=== PATIENT | female | born 1995 | race Caucasian/White ===

== ENCOUNTER → 2021-12-11 13:49 | Outpatient (BNVA) | payer BC, SELFPAY | PROVIDERS: Visit Provider Nurse Practitioner Women's Health | DX: N92.6 Irregular menstruation, unspecified (principal) | CPT/HCPCS: 81025 ==

== ENCOUNTER → 2022-01-07 09:13 | Outpatient (BNVA) | payer OTHER, BC, SELFPAY | PROVIDERS: Visit Provider Obstetrics & Gynecology | DX: Z34.90 Encounter for supervision of normal pregnancy, unspecified, unspecified trimester (principal) | CPT/HCPCS: 80307; 84315; 84443; 85025; 86592; 86762; 86803; 86850; 86900; 87086; 87340 ==

== ENCOUNTER → 2022-01-21 09:17 | Outpatient (BNVA) | payer OTHER, BC, SELFPAY | PROVIDERS: Visit Provider Obstetrics & Gynecology | DX: Z34.00 Encounter for supervision of normal first pregnancy, unspecified trimester (principal) | CPT/HCPCS: 81000 ==

== ENCOUNTER → 2022-05-13 08:12 | Outpatient (BNVA) | payer OTHER, BC, SELFPAY | PROVIDERS: Visit Provider Obstetrics & Gynecology | DX: Z34.00 Encounter for supervision of normal first pregnancy, unspecified trimester (principal) | CPT/HCPCS: 82950; 84315; 85025 ==

== ENCOUNTER 2022-05-26 14:12 | Outpatient (CLI) | payer OTHER, BC, SELFPAY ==
--- NOTE | 2022-05-26 14:15 | US_ITS ---
WS: [id number] ULTRASOUND OB FOCUSED HISTORY: Follow-up profile. COMPARISON: 03/17/2022. Single intrauterine gestation in cephalic position. Cervix is closed at approximately 4 cm. heart rate at 138 BPM. Placenta is anterior with no previa or abruption. Grade: 1. Reevaluation of the profile and lips is normal. No abnormality is identified. US/US OB >= 14 weeks fetus [id number] IMPRESSION: Follow-up imaging of the profile, nose and lips is negative. No abnormali ty identified.
== END 2022-05-26 14:13 | disposition home or self-care (01) ==
LOC: RAD 14:12
PROVIDERS: Visit Provider Obstetrics & Gynecology
DX: Z34.00 Encounter for supervision of normal first pregnancy, unspecified trimester (principal)
CPT/HCPCS: 76805

== ENCOUNTER 2022-06-10 14:00 | Outpatient (CLI) | payer OTHER, BC, SELFPAY ==
[2022-06-10] VITALS (7 sets, daily range): BP systolic 133–155; BP diastolic 74–82; PULSE 91–107; BMI 36.3
[2022-06-10 14:46] LABS: Add Urine Microscopic? NO; Charge for UA Resulting for Rev
[2022-06-10 14:48] LABS: Basophils % 0.3 %; Eosinophils # 0.2 10^3/uL (0.0-0.8); Eosinophils % 1.8 %; Hematocrit 35.7 % (37.0-47.0); Lymphocytes # 2.2 10^3/uL (0.8-4.8); Lymphocytes % 18.3 %; Mean Corpuscular HGB Conc 33.6 g/dL (30.0-36.0); Mean Corpuscular Hemoglobin 30.3 pg (28.0-34.0); Mean Corpuscular Volume 90.2 fl (81-99); Mean Platelet Volume 9.7 fL (7.4-10.4); Monocytes # 0.8 10^3/uL (0.2-0.9); Monocytes % 6.9 %; Neutrophils # 8.55 10^3/uL (1.8-7.7); Neutrophils % 71.7 %; Nucleated Red Blood Cells % 0 %; Platelet Count 219 10^3/cmm (130-400); Red Blood Count 3.96 10^6/uL (4.1-5.3); Red Cell Distribution Width 13.1 % (12.1-15.1)
[2022-06-10 14:50] LABS: Bilirubin Urine Neg (Negative); Blood Urine Neg (Negative); Glucose Urine UA Norm (Normal); Ketones Urine Negative (Negative); Leukocyte Esterase Urine Negative (Negative); Nitrate Urine Negative (Negative); Protein Urine Neg (Negative); Urine Appearance Clear (CLEAR); Urine Color Yellow (Yellow); Urobilinogen Urine Norm (Negative); pH Urine 7 (5-7)
[2022-06-10 15:13] LABS: Urine Creatinine 18 mg/dL (28-217); Urine Protein Random 4 mg/dL
[2022-06-10 15:14] LABS: UPRO/UCREAT Ratio 0.22 mg/mg CR
[2022-06-10 15:15] LABS: Alanine Aminotransferase 9 U/L (0-33); Albumin Level 3.3 g/dL (3.5-5.2); Alkaline Phosphatase 162 IU/L (35-105); Anion Gap 13.8 (5-19); Aspartate Amino Transferase 16 U/L (0-32); Blood Urea Nitrogen 7 mg/dL (6-20); Calcium 8.7 mg/dL (8.5-10.5); Carbon Dioxide 21 mmol/L (22-29); Chloride 103 mmol/L (98-107); Globulin 3.1 g/dL (1.3-4.6); Glomerular Filtration Rate 146.9 mL/min (90-130); Glucose 126 mg/dL (65-115); Osmolality Calculated 278 mOsm/kg (285-295); Potassium 3.8 mmol/L (3.5-5.1); Sodium 134 mmol/L (136-145); Total Bilirubin 0.2 mg/dL (0.15-1.2); Total Protein 6.4 g/dL (6.6-8.7); Uric Acid 3.8 mg/dL (2.4-5.7)
== END 2022-06-10 15:35 | disposition home or self-care (01) ==
LOC: OPOB 14:11 → OBGYN 14:12
PROVIDERS: Obstetrics & Gynecology; Visit Provider Obstetrics & Gynecology
DX: O26.899 Other specified pregnancy related conditions, unspecified trimester (principal); Z3A.00 Weeks of gestation of pregnancy not specified; I10 Essential (primary) hypertension
CPT/HCPCS: 36415; 59025; 80053; 81003; 82570; 84156; 84315; 84443; 84550; 85025; 99211

== ENCOUNTER 2022-06-24 13:46 | Outpatient (CLI) | payer OTHER, BC, SELFPAY ==
[2022-06-24] VITALS (10 sets, daily range): BP systolic 113–133; BP diastolic 68–77; PULSE 15–114; BMI 89.8
--- NOTE | 2022-06-24 13:58 | US_ITS ---
WS: [id number] BIOPHYSICAL PROFILE AMNIOTIC FLUID HISTORY: HYPERTENSION COMPARISON: 05/26/2022 Cardiac activity: 164 bpm. Cervix: Poorly visualized due to head. Placenta: Anterior, no previa or abruption. Placenta grade: 2 position: Vertex. Parameters are as follows: Breathin Movement: 2 Tone: 2 Fluid volume: 2 Amniotic fluid index: 9.5 cm. Largest vertical pocket of amniotic fluid 4.1 cm. US/US OB BPP wo NST [id number] IMPRESSION: 1. Biophysical profile score: 8/8. 2. Normal amniotic fluid index.
[2022-06-24 15:11] LABS: UPRO/UCREAT Ratio 0.14 mg/mg CR; Urine Creatinine 37 mg/dL (28-217); Urine Protein Random 5 mg/dL
[2022-06-24 15:13] LABS: Add Urine Microscopic? YES; Bilirubin Urine Neg (Negative); Blood Urine Neg (Negative); Glucose Urine UA Norm (Normal); Ketones Urine Negative (Negative); Leukocyte Esterase Urine Trace (Negative); Nitrate Urine Negative (Negative); Protein Urine Neg (Negative); RBC Urine 0-4 /hpf (0-2); Specific Gravity, Urine 1.005 (1.005-1.030); Squamous Epithelial Cell Urine 0-4 /hpf (0-5); Urine Appearance Clear (CLEAR); Urine Color Straw (Yellow); Urobilinogen Urine Norm (Negative); pH Urine 7 (5-7)
[2022-06-24 15:14] LABS: Add Urine Culture? Yes; Bacteria Urine 3+ /hpf
[2022-06-24 15:16] LABS: Basophils % 0.3 %; Eosinophils # 0.1 10^3/uL (0.0-0.8); Eosinophils % 1.3 %; Hematocrit 33.2 % (37.0-47.0); Mean Corpuscular HGB Conc 33.1 g/dL (30.0-36.0); Mean Corpuscular Volume 90.5 fl (81-99); Mean Platelet Volume 10.1 fL (7.4-10.4); Monocytes # 0.9 10^3/uL (0.2-0.9); Neutrophils # 7.64 10^3/uL (1.8-7.7); Neutrophils % 70.9 %; Nucleated Red Blood Cells % 0 %; Platelet Count 213 10^3/cmm (130-400); Red Blood Count 3.67 10^6/uL (4.1-5.3); Red Cell Distribution Width 13.2 % (12.1-15.1); White Blood Count 10.8 10^3/uL (4.0-10.0)
[2022-06-24 16:12] LABS: Alanine Aminotransferase 10 U/L (0-33); Albumin Level 3.1 g/dL (3.5-5.2); Alkaline Phosphatase 157 U/L (35-105); Anion Gap 14.8 (5-19); Aspartate Amino Transferase 16 U/L (0-32); Blood Urea Nitrogen 7 mg/dL (6-20); Calcium 8.6 mg/dL (8.5-10.5); Carbon Dioxide 21 mmol/L (22-29); Chloride 103 mmol/L (98-107); Globulin 2.8 g/dL (1.3-4.6); Glucose 94 mg/dL (65-115); Osmolality Calculated 278 mOsm/kg (285-295); Potassium 3.8 mmol/L (3.5-5.1); Sodium 135 mmol/L (136-145); Total Bilirubin 0.2 mg/dL (0.15-1.2); Total Protein 5.9 g/dL (6.6-8.7); Uric Acid 4.7 mg/dL (2.4-5.7)
== END 2022-06-24 16:01 | disposition home or self-care (01) ==
LOC: OPOB 13:49 → OBGYN 15:57
PROVIDERS: Visit Provider Obstetrics & Gynecology
DX: O26.899 Other specified pregnancy related conditions, unspecified trimester (principal); Z3A.00 Weeks of gestation of pregnancy not specified
CPT/HCPCS: 76819; 80053; 81001; 82570; 84156; 84550; 85025; 87086

== ENCOUNTER → 2022-06-28 14:31 | Outpatient (BNVA) | payer OTHER, BC, SELFPAY | PROVIDERS: Visit Provider Obstetrics & Gynecology | DX: Z34.00 Encounter for supervision of normal first pregnancy, unspecified trimester (principal); I10 Essential (primary) hypertension | CPT/HCPCS: 84315; 85025; 87491; 87591; 87661 ==

== ENCOUNTER → 2022-07-09 08:35 | Outpatient (BNVA) | payer OTHER, BC, SELFPAY | PROVIDERS: Visit Provider Obstetrics & Gynecology | DX: O13.9 Gestational [pregnancy-induced] hypertension without significant proteinuria, unspecified trimester (principal); Z3A.00 Weeks of gestation of pregnancy not specified | CPT/HCPCS: 84315; 87081 ==

== ENCOUNTER 2022-07-16 09:10 | Outpatient (CLI) | payer OTHER, BC, SELFPAY ==
[2022-07-16 09:37] VITALS: BMI 37.9
[2022-07-16 09:46] LABS: Actim Prom Negative
== END 2022-07-16 09:56 | disposition home or self-care (01) ==
LOC: OPOB 09:11 → OBGYN 09:12
PROVIDERS: Visit Provider Obstetrics & Gynecology
DX: O26.899 Other specified pregnancy related conditions, unspecified trimester (principal); Z3A.00 Weeks of gestation of pregnancy not specified; N89.8 Other specified noninflammatory disorders of vagina
CPT/HCPCS: 84112

== ENCOUNTER 2022-07-23 02:50 | Inpatient (IN) | payer OTHER, BC, SELFPAY ==
[2022-07-22 13:45] VITALS: BMI 38.9
[2022-07-22 14:20] VITALS: BP 145/77; PULSE 89
[2022-07-22 14:35] VITALS: BP 132/84; PULSE 86
[2022-07-22 14:50] VITALS: BP 132/80; PULSE 91
[2022-07-22 15:06] VITALS: BP 134/78; PULSE 80
[2022-07-23] VITALS (40 sets, daily range): BP systolic 65–155; BP diastolic 36–96; PULSE 64–112; RESP 17; TEMP 36.1–36.2
[2022-07-23 03:19] LABS: Basophils # 0.1 10^3/uL (0.0-0.1); Basophils % 0.5 %; Eosinophils # 0.2 10^3/uL (0.0-0.8); Eosinophils % 1.7 %; Hematocrit 34.9 % (37.0-47.0); Hemoglobin 11.5 g/dL (11.5-15.3); Lymphocytes # 2.9 10^3/uL (0.8-4.8); Lymphocytes % 26.8 %; Mean Corpuscular Hemoglobin 30.1 pg (28.0-34.0); Mean Corpuscular Volume 91.4 fl (81-99); Mean Platelet Volume 10.6 fL (7.4-10.4); Monocytes # 1.1 10^3/uL (0.2-0.9); Monocytes % 9.9 %; Neutrophils # 6.51 10^3/uL (1.8-7.7); Neutrophils % 60.7 %; Nucleated Red Blood Cells % 0 %; Platelet Count 173 10^3/cmm (130-400); Red Blood Count 3.82 10^6/uL (4.1-5.3); Red Cell Distribution Width 14.2 % (12.1-15.1); White Blood Count 10.7 10^3/uL (4.0-10.0)
[2022-07-23] MEDS: miSOPROStol 100 mcg tablet 25 MCG VAGINAL ×4 (03:19→16:25)
--- NOTE | 2022-07-23 11:50 | P.HP_ITS ---
Providers/Chief Complaint Admitting Physician: Luisa Arriaza Primary GANG PLANK WORKMAN: Abdulaziz Chief Complaint: IOL, oligo HPI GANG PLANK WORKMAN History of Present Illness Freida Rodrigez is a 27 year old female G1 at 38w3d with GHTN not on medication who presented for IOL d/t ROHAN of 4 cm. Present Details : 1 Para: 0 Abnormal OB US findings: ROHAN 4 cm Obstetrical complications: gestational hypertension Labs Rubella: Immune RPR: Negative GBS: Negative L&D/Induction Specific History Indication for induction OB: other (oligohydramnios and chtn) Review of Systems General: Reports: 10 or more systems reviewed and unremarkable except in HPI and below Narrative: mildly elevated bps, low amniotic fluid Medications/Allergies Home Medications Medication Instructions Recorded Confirmed Last Taken Type prenat.vits,christopher,cuj-qnvg-blweu 1 tab PO DAILY 12/11/21 07/22/22 07/16/22 History cetirizine 10 mg disintegrating 10 mg PO DAILY 01/07/22 07/22/22 1 Week Ago History tablet (Zyrtec) ~06/17/22 aspirin 81 mg chewable tablet 81 mg PO DAILY 05/13/22 07/22/22 07/16/22 History ferrous sulfate 325 mg (65 mg 325 mg PO DAILY 05/27/22 07/22/22 07/16/22 History iron) tablet Allergies Allergy/AdvReac Type Severity Reaction Status Date / Time Penicillins Allergy Unknown Verified 07/22/22 11:05 PFSH GANG PLANK WORKMAN PFSH: Medical History No pertinent past medical history neghx: htn,dm,thyroid,dvt/pe PCP: None Surgical History H/O shoulder surgery 2010-- right labrum tear Family History Mother Hypercholesteremia Hypertension Father Hypertension Grandfather Stroke Paternal- at age 80 Denies family history of Colon cancer Ovarian cancer Diabetes Heart disease Breast cancer Uterine cancer Thyroid disease Social History Smoking and tobacco status: never smoked Dietary Habits: Current diet type/program: regular Safety: Seatbelt use: always Personal Safety: Do you feel safe at home: Yes History History History 1 Term Miscarriages/Ectopic Living Children Care TADEO Calculator Estimated Delivery Date Method Current WG Current Estimate 08/03/22 LMP (Certain) 38w 3d Other Estimates 08/06/22 Ultrasound #1 38w 0d Expected Delivery Route/Plan vaginal Specific Issues/Plans moniter bps closely Vitals/I&O/Wt Last Vital Signs Pulse 112 H 07/23/22 11:35 Resp 17 07/23/22 02:38 BP 140/95 07/23/22 11:35 O2 Del Method 07/22/22 13:45 Weight last 48 hrs Weight 241 lb Physical Exam Narrative: denies pain, vaginal bleeding, lof. reports good movement. Const: COMMON NORMALS: no acute distress, average body habitus, patient oriented x3, healthy appearing and alert HENMT: COMMON NORMALS: normocephalic, atraumatic, hearing grossly normal bilaterally and moist oral mucous membranes Eye: COMMON NORMALS: EOMs intact bilaterally, conjunctivae normal and no scleral icterus Neck/C-Spine: COMMON NORMALS: full ROM, supple, no JVD and Thyroid normal Resp: COMMON NORMALS: normal respiratory effort, No retractions and No use of accessory muscles Cardio: COMMON NORMALS: no JVD and regular rate GI: INSPECTION: Yes normal to inspection and Yes gravid abdomen : OTHER: SVE 1cm/thick/-2 vtx per nursing Extremity: COMMON NORMALS: normal to inspection, full ROM, capillary refill normal and no clubbing, cyanosis or edema Neuro: COMMON NORMALS: patient oriented x3, moves all extremities, no focal motor deficits, no sensory deficits noted and gait normal Psych: COMMON NORMALS: mental status grossly normal, Normal thought process present, cooperative, normal affect and speech normal Skin: COMMON NORMALS: no rashes or lesions noted and turgor normal Data : 07/23/22 03:11 A&P Assessment and plan (1) Supervision of normal first : Status: Acute (2) Gestational hypertension affecting first : Status: Acute (3) Oligohydramnios in third trimester: Status: Acute Plan admit for cytotec for cervical ripening followed by pitocin induction anticipate cmp this am to check liver enzymes d/t elevated bps Attestations Medical Necessity Statement*: 38 weeks gestation admitted for MIL d/t oligohydramnios and ghtn Coding Level of Care Code Acute Orthotics Assistant for Chg Fwd Diagnoses Supervision of normal first Z34.00 Gestational hypertension affecting first O13.9 Oligohydramnios in third trimester O41.03X0
[2022-07-23 13:03] LABS: Alanine Aminotransferase 10 U/L (0-33); Albumin Level 3.1 g/dL (3.5-5.2); Alkaline Phosphatase 199 U/L (35-105); Aspartate Amino Transferase 17 U/L (0-32); Blood Urea Nitrogen 10 mg/dL (6-20); Calcium 8.6 mg/dL (8.5-10.5); Carbon Dioxide 19 mmol/L (22-29); Chloride 104 mmol/L (98-107); Globulin 3.1 g/dL (1.3-4.6); Glucose 92 mg/dL (65-115); Osmolality Calculated 279 mOsm/kg (285-295); Sodium 135 mmol/L (136-145); Total Bilirubin 0.2 mg/dL (0.15-1.2); Total Protein 6.2 g/dL (6.6-8.7)
[2022-07-23] MEDS: oxytocin 30 UNIT/500 ML BAG IV (20:56)
[2022-07-23] MEDS: dextrose 5%-lactated ringers 1,000 ML 125 ML IV (20:57)
[2022-07-24] VITALS (96 sets, daily range): BP systolic 115–162; BP diastolic 59–96; PULSE 65–107; RESP 16–18; TEMP 36.9–37.2; O2SAT 91–100
[2022-07-24] MEDS: lactated ringers 1,000 ML 999 ML IV ×2 (02:10→03:40)
--- NOTE | 2022-07-24 02:47 | P.ANESUD_ITS ---
Pre-Anesthetic Update Pre-Anesthetic Assessment: Date of Surgery/Procedure: 07/24/22 Preop Marta gnosis: Planning of labor analgesia Proposed Procedure: Labor Epidural Any changes to Pre-Anesthetic Assessment?: No Last Intake: 19:00 Labs Last 48hrs: Short CBC 07/23/22 Range/Units 03:11 WBC 10.7 H (4.0-10.0) 10^3/ uL Hgb 11.5 (11.5-15.3) g/dL Hct 34.9 L (37.0-47.0) % MCV 91.4 (81-99) fl Plt Count 173 (130-400) 10^3/c mm Neut % (Auto) 60.7 % Neut # (Auto) 6.51 (1.8-7.7) 10^3/u L BMP 07/23/22 12:00 Sodium 135 L Potassium 4.0 Chloride 104 Carbon Dioxide 19 L BUN 10 Creatinine 0.6 Glucose 92 Calcium 8.6 Liver Function 07/23/22 Range/Units 12:00 Total Bilirubin 0.2 (0.15-1.2) mg/dL AST 17 (0-32) U/L ALT 10 (0-33) U/L Alkaline Phosphata se 199 H (35-105) U/L Albumin 3.1 L (3.5-5.2) g/dL Vitals: Temperature 97.0 F L 07/23/22 12:00 Temperature Source Tympanic 07/23/22 12:00 Pulse Rate 86 07/24/22 02:40 Respiratory Rate 17 07/23/22 02:38 Respiratory Effort Non-Labored 07/22/22 13:45 Respiratory Depth Normal 07/22/22 13:45 Respiratory Patter n 07/22/22 13:45 Blood Pressure 131/78 07/24/22 02:40 Pulse Oximetry 100 07/24/22 02:38 Oxygen Delivery Me thod 07/22/22 13:45 Exam: Pre-Anes Outpt Exam: alert, oriented x 3, clear to auscultation bilaterally and regular rate & rhythm Cardiac Studies: No Data to Display Anesthesia Procedures Epidural: Time Out Performed: Yes Consents Signed: Procedure Consent Consent: from patient Lumbar Level: L4-L5 Epidural position: sitting Epidural procedure: sterile prep of area, 1% lidocaine to numb the area, 18 g needle, negative for paresthesia passed, neg for paresthesia, test dose given (2% Xylocaine 1:200k Epi), placed PCEA, no systemic response, sterile dressing applied, L.U.D. no apparent complications and 0.2% Ropiavacaine @ mls/hr (13)
[2022-07-24] MEDS: dextrose 5%-lactated ringers 1,000 ML 125 ML IV ×2 (05:01→09:30)
--- NOTE | 2022-07-24 06:26 | PC.NURSE ---
Pt was found to be ruptured during cervical exam on 07/24/2022 by [email or web address] at 0612, small amount of fluid and it was clear.
[2022-07-24] MEDS: ondansetron 2 mg/ML SDV 2 mL 4 MG IVP (07:48)
[2022-07-24] MEDS: acetaminophen 325 mg Tablet 650 MG PO ×2 (09:29→15:58)
--- NOTE | 2022-07-24 11:12 | P.PCNOB_ITS ---
Delivery Note: Date of delivery: July 24, 2022 Pre-delivery diagnoses: 38 w iup gestational htn Post-delivery diagnoses: same meconium stained amniotic fluid Procedure: Uncomplicated Delivering Physician: Arsalan Estimated blood loss (mL): 300 Findings: viable female with apgars of 4,6 and 9, Weight 3360 gms Pre-Delivery Course: admitted for MIL with cytotec and pitocin with SROM between 0500 and 0615 initially reported to be clear. Epidural anesthesia in place and working well. Delivery: from OA position without complication. Upon easy rotation and delivery of the anterior shoulder, a pop was felt. No dystocia was present. Thin meconium noted in the fluid that followed delivery of the . Baby p laced on the maternal abdomen after bulb suctioning the nares and oropharynx. Cord clamped and cut and baby noted to not be vigerous, so was taken to the warmer for further evaluation. Placenta delivered spontaneously intact with 3 vc noted. EBL 300ml. Superficial abrasion noted to right periurethral and left introitus not bleeding and not repaired. Post-Delivery Status: Mom and baby stable, baby taken to the nursery for further evaluation due to the presence of meconium and increased work of breathing. Peds called. Baby girl subsequently transferred to [facility] in [place]. History History History 1 Term Miscarriages/Ectopic Living Children Past Pregnancies Del. Date GA/Weeks Outcome Route Wt Inf Gender Labor Lgth Comp. Anesth esia Location Unknown 38 live - full term Vaginal 7 lb 6.521 oz Female A&P Assessment and plan (1) Supervision of normal first : (2) Oligohydramnios in third trimester: (3) Gestational hypertension affecting first : Plan routine care moniter bps Coding Level of Care Code Established Pt Acute Switchbox Assembler for Chg Fwd Patient Type Established History Problem Focused Exam Problem Focused Medical Decision Making Straight Forward Diagnoses Supervision of normal first Z34.00 Oligohydramnios in third trimester O41.03X0 Gestational hypertension affecting first O13.9 Time Spent (min) 45
--- NOTE | 2022-07-24 17:29 | PM.OBGYDC ---
Discharge Providers HIGHWAY TRAFFIC CONTROL TECHNICIAN Date of Admission: 07/23/22 02:50 Date of Discharge: 07/24/22 Attending Provider at Admission: Luisa Arriaza Attending Provider at Discharge: Luisa Arriaza Diagnoses at Discharge Discharge Diagnosis (1) Supervision of normal first : Details from hospital stay: admitted at 38 weeks for MIL for GHTN and Oligohydramnios. Status: Acute (2) Oligohydramnios in third trimester: Status: Acute (3) Gestational hypertension affecting first : Status: Acute Reason for Visit Reason for Visit: IOL, oligo Brief History: sent for induction for GHTN and oligohydramnios Hospital Course Hospital Course admitted and started induction with cytotec and pitocin. Progressed to complete and delivered a viable female over a superficial abrasion with epidural anesthesia with thin non particulate meconium staining of the amniotic fluid noted in the aftercoming fluid. Baby needed additional oxygen and care in the nursery for increased work of breathing and was subsequently transferred to [facility]. Mom was stable pp and was discharged to go with baby. Information Peripartum Data: Delivery Method: Vaginal Laceration description: Superficial (right periurethral and left introitus, not bleeding) complications: none Physical Exam Const: COMMON NORMALS: no acute distress, patient oriented x3 and alert HENMT: COMMON NORMALS: normocephalic and moist oral mucous membranes HEAD & SCALP: normocephalic Eye: COMMON NORMALS: conjunctivae normal and no scleral icterus CONJUNCTIVA: Yes conjunctivae normal Neck/C-Spine: COMMON NORMALS: no JVD Resp: COMMON NORMALS: normal respiratory effort, No retractions and No use of accessory muscles Cardio: COMMON NORMALS: no JVD, regular rate and Peripheral pulses 2+ throughout RATE: regular rate PERIPHERAL PULSES: Peripheral pulses 2+ throughout GI: INSPECTION: Yes normal to inspection and Yes gravid abdomen : OTHER: normal pp lochia Extremity: COMMON NORMALS: normal to inspection, full ROM and no clubbing, cyanosis or edema Neuro: COMMON NORMALS: patient oriented x3, moves all extremities and gait normal SENSORIUM/ORIENTATION: Yes alert Psych: COMMON NORMALS: mental status grossly normal, Normal thought process present, cooperative and normal affect THOUGHT PROCESS: Normal thought process present Skin: NARRATIVE SKIN EXAM: warm, dry and intact Urinary Catheter Management: Piper: Cath Placed During This Visit: yes, but has since been removed by the nurse Reason for Continuing Indwelling Catheter: Decision to DC Catheter Urinary Catheter Date of Insertion: 07/24/22 Urinary Catheter Time of Insertion: 03:21 Date Urinary Catheter Removed: 07/24/22 Time Urinary Catheter Discontinued: 12:00 History History History 1 Term Miscarriages/Ectopic Living Children Past Pregnancies Del. Date GA/Weeks Outcome Route Wt Inf Gender Labor Lgth Comp. Anesthesia Location Unknown 38 live - full term Vaginal 7 lb 6.521 oz Female Discharge Data Studies Completed and Pending Laboratory Results WBC 10.7 10^3/uL (4.0-10.0) H 07/23/22 03:11 RBC 3.82 10^6/uL (4.1-5.3) L 07/23/22 03:11 Hgb 11.5 g/dL (11.5-15.3) 07/23/22 03:11 Hct 34.9 % (37.0-47.0) L 07/23/22 03:11 MCV 91.4 fl (81-99) 07/23/22 03:11 MCH 30.1 pg (28.0-34.0) 07/23/22 03:11 MCHC 33.0 g/dL (30.0-36.0) 07/23/22 03:11 RDW 14.2 % (12.1-15.1) 07/23/22 03:11 Plt Count 173 10^3/cmm (130-400) 07/23/22 03:11 MPV 10.6 fL (7.4-10.4) H 07/23/22 03:11 Neut % (Auto) 60.7 % 07/23/22 03:11 Lymph % (Auto) 26.8 % 07/23/22 03:11 [place] % (Auto) 9.9 % 07/23/22 03:11 Eos % (Auto) 1.7 % 07/23/22 03:11 Baso % (Auto) 0.5 % 07/23/22 03:11 Neut # (Auto) 6.51 10^3/uL (1.8-7.7) 07/23/22 03:11 Lymph # (Auto) 2.9 10^3/uL (0.8-4.8) 07/23/22 03:11 [place] # (Auto) 1.1 10^3/uL (0.2-0.9) H 07/23/22 03:11 Eos # (Auto) 0.2 10^3/uL (0.0-0.8) 07/23/22 03:11 Baso # (Auto) 0.1 10^3/uL (0.0-0.1) 07/23/22 03:11 Nucleated RBC % (auto) 0 % 07/23/22 03:11 Nucleated RBCs # 0.0 /100WBC 07/23/22 03:11 Sodium 135 mmol/L (136-145) L 07/23/22 12:00 Potassium 4.0 mmol/L (3.5-5.1) 07/23/22 12:00 Chloride 104 mmol/L (98-107) 07/23/22 12:00 Carbon Dioxide 19 mmol/L (22-29) L 07/23/22 12:00 Anion Gap 16.0 (5-19) 07/23/22 12:00 BUN 10 mg/dL (6-20) 07/23/22 12:00 Creatinine 0.6 mg/dL (0.5-0.9) 07/23/22 12:00 GFR Calculation 119.0 mL/min (90-130) 07/23/22 12:00 Glucose 92 mg/dL (65-115) 07/23/22 12:00 Calculated Osmolality 279 mOsm/kg (285-295) L 07/23/22 12:00 Calcium 8.6 mg/dL (8.5-10.5) 07/23/22 12:00 Total Bilirubin 0.2 mg/dL (0.15-1.2) 07/23/22 12:00 AST 17 U/L (0-32) 07/23/22 12:00 ALT 10 U/L (0-33) 07/23/22 12:00 Alkaline Phosphatase 199 U/L (35-105) H 07/23/22 12:00 Total Protein 6.2 g/dL (6.6-8.7) L 07/23/22 12:00 Albumin 3.1 g/dL (3.5-5.2) L 07/23/22 12:00 Globulin 3.1 g/dL (1.3-4.6) 07/23/22 12:00 Procedures Performed 07/24/22 Vitals Last Vital Signs Temp 98.5 F 07/24/22 18:00 Pulse 90 07/24/22 18:00 Resp 18 07/24/22 18:00 BP 132/80 07/24/22 18:00 Pulse Ox 100 07/24/22 07:35 O2 Del Method 07/22/22 13:45 Discharge Plan Discharge Patient Disposition: Home Condition: Good Discharge Orders: Discharge Order (Routine); Ordered 07/24/22 Ordered By: Luisa Arriaza Referrals: Tamika Cintron MD [Physician] - Discharge Diet: Advance as tolerated and Regular Discharge Activity: Limit activity as instructed Patient Instructions: Depression (DC), Your Baby (DC), Expression, Collection and Storage of Breast Milk (DC), and Nipple Soreness (DC), and Breast Engorgement (DC), Bleeding (DC), Preeclampsia and Eclampsia After Delivery (GEN), Breast Care for the Mother (DC), OB Care at Home, Opioid Safety, OB Proud Parent Packet, OB Vaginal Deliveries - [facility], Abnormal Bleeding, Depression Activity Restrictions/Additional Instructions: Call [facility] this week to make a appointment at 6 weeks out. Call your doctor if you develop worsening swelling, blurred vision, headaches, or increased blood pressure. If you start having increased bleeding and saturating a pad within 1 hour and are passing large clots, be seen in the closest Emergency Department. May take OTC ibuprofen for pain. 800mg every 8 hours. Discharge Attestations HIGHWAY TRAFFIC CONTROL TECHNICIAN Time Spent in Discharge Care*: greater than 30 min Coding Level of Care Code Established Pt Acute Sign Writer Letterer Or Painter for Chg Fwd Patient Type Established History Problem Focused Exam Problem Focused Medical Decision Making Straight Forward Diagnoses Supervision of normal first Z34.00 Oligohydramnios in third trimester O41.03X0 Gestational hypertension affecting first O13.9 Time Spent (min) 45
--- NOTE | 2022-07-26 15:43 | ANE.PACU2 ---
Inpatient post-anesthesia follow up: Airway intact: Yes Vital signs: Temperature 98.5 F Pulse Rate 90 Respiratory Rate 18 Blood Pressure 132/80 Pulse Oximetry 100 Oxygen Delivery Me thod Room Air Oxygen Flow Rate Fraction of Inspir ed Oxygen Hydration adequate: Yes Nausea and vomiting: No Pain level: 2 Mental status: Baseline
== END 2022-07-24 18:00 | disposition home or self-care (01) | DRG 807 ==
LOC: OPOB 02:51 → OBGYN 02:51
PROVIDERS: Admitting Provider Obstetrics & Gynecology; Visit Provider Obstetrics & Gynecology
DX: O41.03X0 Oligohydramnios, third trimester, not applicable or unspecified (principal); Z37.0 Single live birth; O13.4 Gestational [pregnancy-induced] hypertension without significant proteinuria, complicating childbirth; O77.0 Labor and delivery complicated by meconium in amniotic fluid; O71.82 Other specified trauma to perineum and vulva; Z3A.38 38 weeks gestation of pregnancy
CPT/HCPCS: 36415; 51702; 59025; 59409; 80053; 84315; 85025; 99211; J2405; J2795

== ENCOUNTER → 2024-07-12 08:11 | Outpatient (BNVA) | payer OTHER, BC, SELFPAY | PROVIDERS: Visit Provider Nurse Practitioner Women's Health | DX: N92.6 Irregular menstruation, unspecified (principal) | CPT/HCPCS: 81025 ==

== ENCOUNTER → 2024-07-26 13:31 | Outpatient (BNVA) | payer OTHER, BC, SELFPAY | PROVIDERS: Visit Provider Nurse Practitioner Women's Health | DX: Z36.87 Encounter for antenatal screening for uncertain dates (principal); N83.12 Corpus luteum cyst of left ovary; Z3A.08 8 weeks gestation of pregnancy | CPT/HCPCS: 76801 ==

== ENCOUNTER → 2024-08-09 13:57 | Outpatient (BNVA) | payer OTHER, BC, SELFPAY | PROVIDERS: Visit Provider Nurse Practitioner Women's Health | DX: Z34.90 Encounter for supervision of normal pregnancy, unspecified, unspecified trimester (principal); O13.9 Gestational [pregnancy-induced] hypertension without significant proteinuria, unspecified trimester | CPT/HCPCS: 80053; 80307; 84315; 84443; 85025; 86592; 86762; 86787; 86803; 86850; 86900; 87086; 87340; 87806 ==

== ENCOUNTER → 2024-08-15 10:01 | Outpatient (BNVA) | payer OTHER, BC, SELFPAY | PROVIDERS: Visit Provider Nurse Practitioner Women's Health | DX: O46.8X1 Other antepartum hemorrhage, first trimester (principal); Z3A.11 11 weeks gestation of pregnancy | CPT/HCPCS: 76801; 84315 ==

== ENCOUNTER → 2024-08-23 10:24 | Outpatient (BNVA) | payer OTHER, BC, SELFPAY | PROVIDERS: Visit Provider Obstetrics & Gynecology | DX: O09.899 Supervision of other high risk pregnancies, unspecified trimester (principal) | CPT/HCPCS: 84315; 87491; 87591; 87661 ==

== ENCOUNTER → 2024-08-24 | Outpatient (BNVA) | payer OTHER, BC, SELFPAY | PROVIDERS: Visit Provider Obstetrics & Gynecology | DX: O09.899 Supervision of other high risk pregnancies, unspecified trimester (principal) | CPT/HCPCS: 87491; 87591 ==

== ENCOUNTER 2024-08-31 09:10 | Outpatient (CLI) | payer OTHER, BC, SELFPAY ==
[2024-08-31 09:43] LABS: Urine Total Protein 5.7 mg/dL (0-150)
[2024-08-31 10:12] LABS: Total Volume, Urine 2080 mL; Urine Total Protein 24 Hour 118.6 mg/24hr (0-150)
== END 2024-08-31 09:11 | disposition home or self-care (01) ==
PROVIDERS: Visit Provider Nurse Practitioner Women's Health
DX: O13.2 Gestational [pregnancy-induced] hypertension without significant proteinuria, second trimester (principal)
CPT/HCPCS: 84156

== ENCOUNTER → 2024-09-13 08:49 | Outpatient (BNVA) | payer OTHER, BC, SELFPAY | PROVIDERS: Visit Provider Nurse Practitioner Women's Health | DX: Z34.02 Encounter for supervision of normal first pregnancy, second trimester (principal) | CPT/HCPCS: 76815 ==

== ENCOUNTER → 2024-10-18 09:19 | Outpatient (BNVA) | payer OTHER, BC, SELFPAY | PROVIDERS: Visit Provider Obstetrics & Gynecology | DX: Z34.92 Encounter for supervision of normal pregnancy, unspecified, second trimester (principal) | CPT/HCPCS: 76805 ==

== ENCOUNTER → 2024-11-15 08:52 | Outpatient (BNVA) | payer OTHER, BC, SELFPAY | PROVIDERS: Visit Provider Nurse Practitioner Women's Health | DX: O09.899 Supervision of other high risk pregnancies, unspecified trimester (principal); O13.9 Gestational [pregnancy-induced] hypertension without significant proteinuria, unspecified trimester; O35.03X0 Maternal care for (suspected) central nervous system malformation or damage in fetus, choroid plexus cysts, not applicable or unspecified; Z3A.24 24 weeks gestation of pregnancy | CPT/HCPCS: 82950; 84315 ==

== ENCOUNTER → 2024-12-06 08:03 | Outpatient (BNVA) | payer OTHER, BC, SELFPAY | PROVIDERS: Visit Provider Nurse Practitioner Women's Health | DX: O09.893 Supervision of other high risk pregnancies, third trimester (principal) | CPT/HCPCS: 76816; 84315; 85025; 87491; 87591; 87661 ==

== ENCOUNTER → 2024-12-21 09:45 | Outpatient (BNVA) | payer BC, SELFPAY | PROVIDERS: Visit Provider Obstetrics & Gynecology | DX: O09.899 Supervision of other high risk pregnancies, unspecified trimester (principal) | CPT/HCPCS: 84315 ==

== ENCOUNTER 2024-12-24 10:27 | Outpatient (CLI) | payer BC, SELFPAY ==
[2024-12-24 11:29] LABS: Urine Total Protein 11.7 mg/dL (0-150)
[2024-12-24 12:35] LABS: Total Volume, Urine 1690 mL; Urine Total Protein 24 Hour 197.7 mg/24hr (0-150)
== END 2024-12-24 10:28 | disposition home or self-care (01) ==
PROVIDERS: Visit Provider Obstetrics & Gynecology
DX: O09.899 Supervision of other high risk pregnancies, unspecified trimester (principal); O13.9 Gestational [pregnancy-induced] hypertension without significant proteinuria, unspecified trimester
CPT/HCPCS: 84156

== ENCOUNTER → 2025-01-03 08:09 | Outpatient (BNVA) | payer BC, SELFPAY | PROVIDERS: Visit Provider Nurse Practitioner Women's Health | DX: O09.892 Supervision of other high risk pregnancies, second trimester (principal) | CPT/HCPCS: 84315 ==

== ENCOUNTER → 2025-01-18 11:28 | Outpatient (BNVA) | payer BC, SELFPAY | PROVIDERS: Visit Provider Obstetrics & Gynecology | DX: O09.899 Supervision of other high risk pregnancies, unspecified trimester (principal) | CPT/HCPCS: 84315 ==

== ENCOUNTER → 2025-01-31 07:56 | Outpatient (BNVA) | payer BC, SELFPAY | PROVIDERS: Visit Provider Nurse Practitioner Women's Health | DX: O09.893 Supervision of other high risk pregnancies, third trimester (principal); Z3A.36 36 weeks gestation of pregnancy | CPT/HCPCS: 76816 ==

== ENCOUNTER → 2025-02-01 08:10 | Outpatient (BNVA) | payer BC, SELFPAY | PROVIDERS: Visit Provider Nurse Practitioner Women's Health | DX: O09.899 Supervision of other high risk pregnancies, unspecified trimester (principal) | CPT/HCPCS: 84315; 87081 ==

== ENCOUNTER → 2025-02-07 13:56 | Outpatient (BNVA) | payer BC, SELFPAY | PROVIDERS: Visit Provider Obstetrics & Gynecology | DX: O09.899 Supervision of other high risk pregnancies, unspecified trimester (principal) | CPT/HCPCS: 84315 ==

== ENCOUNTER → 2025-02-15 10:18 | Outpatient (BNVA) | payer BC, SELFPAY | PROVIDERS: Visit Provider Nurse Practitioner Women's Health | DX: O09.891 Supervision of other high risk pregnancies, first trimester (principal) | CPT/HCPCS: 84315 ==

== ENCOUNTER → 2025-02-22 10:01 | Outpatient (BNVA) | payer BC, SELFPAY | PROVIDERS: Visit Provider Nurse Practitioner Women's Health | DX: O09.899 Supervision of other high risk pregnancies, unspecified trimester (principal) | CPT/HCPCS: 84315 ==

== ENCOUNTER → 2025-02-28 08:03 | Outpatient (BNVA) | payer BC, SELFPAY | PROVIDERS: Visit Provider Obstetrics & Gynecology | DX: O09.899 Supervision of other high risk pregnancies, unspecified trimester (principal) | CPT/HCPCS: 84315 ==

== ENCOUNTER 2025-03-04 08:25 | Outpatient (CLI) | payer BC, SELFPAY ==
[2025-03-04 08:31] VITALS: BP 132/73; PULSE 86
[2025-03-04 08:46] VITALS: BP 139/87; PULSE 96
== END 2025-03-04 09:00 | disposition home or self-care (01) ==
LOC: OPOB 08:26 → OBGYN 08:27
PROVIDERS: Absent Provider Obstetrics & Gynecology; Visit Provider Obstetrics & Gynecology
DX: O48.0 Post-term pregnancy (principal); Z3A.00 Weeks of gestation of pregnancy not specified
CPT/HCPCS: 59025; 76816; 76819; 99211

== ENCOUNTER 2025-03-07 00:13 | Inpatient (IN) | payer BC, SELFPAY ==
[2025-03-07] VITALS (45 sets, daily range): BP systolic 115–156; BP diastolic 57–96; PULSE 72–110; RESP 16; TEMP 36.6–36.9; O2SAT 90–100; BMI 36.6
--- NOTE | 2025-03-07 01:10 | PM.OBGYHP ---
Providers/Chief Complaint Admitting Physician: Danny Fine MD Chief Complaint: IOL HPI FINANCIAL COUNSELOR History of Present Illness Freida Rodrigez is a 29 year old female EDC March 01, 2025 At 40 w 6 d No complications Admitted for induction of labor No complaints + active movements Present Details : 2 Para: 1 Labs Rubella: Immune RPR: Negative GBS: Negative Medications/Allergies Home Medications ?Medication ?Instructions ?Recorded ?Confirmed ?Last Taken ?Type docosahexaenoic acid 200 mg 200 mg PO DAILY 07/12/24 02/28/25 Unknown History capsule ( DHA) aspirin 81 mg tablet,delayed 81 mg PO DAILY 09/14/24 02/28/25 Unknown History release loratadine 10 mg capsule (Allergy 10 mg PO DAILY 11/15/24 02/28/25 Unknown History Relief (loratadine)) famotidine 40 mg tablet 40 mg PO DAILY #30 tabs 01/03/25 02/28/25 Unknown Rx Allergies Allergy/AdvReac Type Severity Reaction Status Date / Time Penicillins Allergy Unknown Unknown Verified 03/07/25 00:49 PFSH FINANCIAL COUNSELOR PFSH: Medical History Gestational hypertension affecting first did not require medication No pertinent past medical history neghx: htn,dm,thyroid,dvt/pe PCP: None Surgical History H/O shoulder surgery 2010-- right labrum tear Family History Mother Hypercholesteremia Hypertension Father Hypertension Grandfather Stroke Paternal- at age 80 Denies family history of Colon cancer Ovarian cancer Diabetes Heart disease Breast cancer Uterine cancer Thyroid disease Social History Smoking and tobacco/nicotine status: never used tobacco/nicotine Personal Safety: Do you feel safe at home: Yes History History History 2 Term 1 0 Miscarriages/Ectopic 0 Living Children 1 Past Pregnancies Del. Date GA/Weeks Outcome Route Wt Inf Gender Labor Lgth Comp. Anesthesia Location Unknown 38 live - full term Vaginal 7 lb 6.521 oz Female Care TADEO Calculator Estimated Delivery Date Method Current WG Current Estimate 03/01/25 LMP (Certain) 40w 6d Other Estimates 03/02/25 Ultrasound #1 40w 5d Specific Issues/Plans HX GEST HTN 2021- start 81mg asa at 12 wks; 24 hr urine normal at 14 weeks Vitals/I&O/Wt Last Vital Signs Pulse 99 03/07/25 12:03 BP 143/76 03/07/25 12:03 Pulse Ox 90 03/07/25 08:10 O2 Del Method Room Air 03/07/25 02:32 03/06/25 03/07/25 03/07/25 22:59 06:59 14:59 Intake Total 1010 / 1010 Balance 1010 / 1010 Weight last 48 hrs Weight 227 lb Physical Exam Narrative: Weight 227 lbs; 5?6? VS normal General comfortable, awake, alert Lungs: clear Cor: RRR FH 38 cm, cephalic Cervix: closed / -3 / posterior Ext: no edema External monitor: heart tracing good variability, + accelerations Data 03/07/25 01:17 Results Labs OB ([facility]): Obstetrics US 03/04/25 Blood Type B Positive Today Antibody Screen Negative Today Hct, (36-47) 31.7 % L Today Hgb, (11.27-16.99) 10.40 g/dL L Today Rho(D) Type Rh positive Today Plt Count, (157-399) 191 10^3/cmm Today Hep Bs Antigen, (Nonreactive) Non-reactive 08/09/24 Hepatitis C Antibody, (Nonreactive) Non-reactive 08/09/24 Rubella IgG Antibody, (0.0-10.0) > 500.0 IU/mL H 08/09/24 RPR, (Nonreactive) Nonreactive 08/09/24 HIV 1&2 Ab & HIV 1 Ag, (Non-Reactiv) Non-reactive 08/09/24 TSH, (0.27-4.20) 1.54 uIU/mL 08/09/24 Glucose 1 Hr 50 gm, (85-140) 100 mg/dL 11/15/24 VZV IgG Antibody 40.60 S/CO 08/09/24 HCG, Qual, (Negative) Positive H 07/12/24 Urine Opiates Screen, (Negative) Negative ng/mL 08/09/24 Ur Barbiturates Screen, (Negative) Negative ng/mL 08/09/24 Ur Phencyclidine Scrn, (Negative) Negative ng/mL 08/09/24 Ur Amphetamines Screen, (Negative) Negative ng/mL 08/09/24 U Benzodiazepines Scrn, (Negative) Negative ng/mL 08/09/24 Urine Cocaine Screen, (Negative) Negative ng/mL 08/09/24 U Marijuana (THC) Screen, (Negative) Negative ng/mL 08/09/24 Micro Urine Specimen 08/09/24 A&P Assessment and plan (1) Supervision of other high-risk : 40 w 6 d Fetus reassuring Admitted for IOL Plan Cytotec 25 ug intravaginal Labor management PDMP PDMP Reviewed: Not Reviewed Attestations Medical Necessity Statement*: patient at 40 w 6 d, admitted for induction of labor Coding Level of Care Code Acute Code for Chg Fwd Diagnoses Supervision of other high-risk O09.899
[2025-03-07 01:27] LABS: Basophils % 0.4 %; Eosinophils # 0.1 10^3/uL (0.0-0.8); Eosinophils % 1.3 %; Hematocrit 31.7 % (36-47); Lymphocytes # 2.9 10^3/uL (0.8-4.8); Lymphocytes % 28.3 %; Mean Corpuscular HGB Conc 32.8 g/dL (30-55); Mean Corpuscular Hemoglobin 29.1 pg (27-33); Mean Corpuscular Volume 88.8 fl (85-98); Mean Platelet Volume 9.8 fL (7.4-10.4); Monocytes # 0.7 10^3/uL (0.2-0.9); Monocytes % 7.2 %; Neutrophils # 6.38 10^3/uL (1.8-7.7); Neutrophils % 62.2 %; Nucleated Red Blood Cells % 0 %; Platelet Count 191 10^3/cmm (157-399); Red Blood Count 3.57 10^6/uL (3.85-5.65); White Blood Count 10.25 10^3/uL (3.29-11.43)
[2025-03-07] MEDS: miSOPROStol 100 mcg tablet 25 MCG VAGINAL ×2 (02:08→06:14)
[2025-03-07] MEDS: lactated ringers 1,000 ML 999 ML IV (07:49)
--- NOTE | 2025-03-07 08:00 | ANES.PREANE2 ---
Pre-Anesthetic Assessment Height/Weight: Height 5 ft 6 in Weight 227 lb Pulse BP Pulse Ox O2 Del Method 93 146/72 90 Room Air 03/07/25 09:04 03/07/25 09:04 03/07/25 08:10 03/07/25 02:32 Preop Diagnosis: IUP Was Beta Vaishnavi taken within 24 hours: N/A Was Clonidine taken within 24 hours: N/A Social No alcohol and No tobacco Exam alert, oriented x 3, clear to auscultation bilaterally and regular rate & rhythm Airway Submandibular: within normal limits Cervical ROM: within normal limits Mallampati: Class II Dentition: full Anesthetic Plan ASA status: 2 Anesthesia: Regional (specify below) Other: No prior issues with anesthesia here for IUP History of GERD on Pepcid Patient is currently 8 cm dilated Labs reviewed and acceptable for procedure Plan for routine epidural placement Medications/Allergies Home Medications ?Medication ?Instructions ?Recorded ?Confirmed ?Last Taken ?Type docosahexaenoic acid 200 mg 200 mg PO DAILY 07/12/24 02/28/25 Unknown History capsule ( DHA) aspirin 81 mg tablet,delayed 81 mg PO DAILY 09/14/24 02/28/25 Unknown History release loratadine 10 mg capsule (Allergy 10 mg PO DAILY 11/15/24 02/28/25 Unknown History Relief (loratadine)) famotidine 40 mg tablet 40 mg PO DAILY #30 tabs 01/03/25 02/28/25 Unknown Rx Allergies Allergy/AdvReac Type Severity Reaction Status Date / Time Penicillins Allergy Unknown Unknown Verified 03/07/25 00:49 [facility] Anesthesia Medical History Gestational hypertension affecting first did not require medication No pertinent past medical history neghx: htn,dm,thyroid,dvt/pe PCP: None Surgical History H/O shoulder surgery 2010-- right labrum tear Family History Mother Hypercholesteremia Hypertension Father Hypertension Grandfather Stroke Paternal- at age 80 Denies family history of Colon cancer Ovarian cancer Diabetes Heart disease Breast cancer Uterine cancer Thyroid disease Social History Smoking and tobacco/nicotine status: never used tobacco/nicotine Female Reproductive History : 2 Data Anesthesia 03/07/25 01:17 Short CBC 03/07/25 Range/Units 01:17 WBC 10.25 (3.29-11.43) 10^3/uL Hgb 10.40 L (11.27-16.99) g/dL Hct 31.7 L (36-47) % MCV 88.8 (85-98) fl Plt Count 191 (157-399) 10^3/cmm Neut % (Auto) 62.2 % Neut # (Auto) 6.38 (1.8-7.7) 10^3/uL Blood Bank 03/07/25 01:17 Blood Type B Positive Rho(D) Type Rh positive Antibody Screen Negative
[2025-03-07] MEDS: ROPivacaine syringe 100 MG/50 ML SYRINGE 12 MG EPIDURAL (08:15)
--- NOTE | 2025-03-07 09:22 | ANES.PROC ---
Anesthesia Procedures Procedure/Date: 03/07/25 Epidural: Time Out Performed: Yes Consents Signed: Procedure Consent Consent: requested by attending/covering physician and from patient Lumbar Level: L3-L4 Epidural position: sitting Additional Comments: Site was prepped with ChloraPrep. 1% lidocaine was used to numb the skin. Epidural needle was then introduced to 7 cm until [id number] was received. A 27-gauge spinal needle was then introduced into the intrathecal space. 1 cc of 0.25% bupivacaine was then injected into the spinal space. Spinal needle was removed and epidural catheter was threaded to 15 cm to skin. No systemic response. No paresthesias noted. Sterile dressing was applied. Ropivacaine 0.2% was then set at 12 mL/h
[2025-03-07] MEDS: oxytocin 30 UNIT/500 ML BAG 600 UNIT IV (09:59)
--- NOTE | 2025-03-07 14:05 | P.PCNOB_ITS ---
Delivery Note: Date of delivery: March 07, 2025 Pre-delivery diagnoses: 40 w 6 d induction of labor Post-delivery diagnoses: 40 w 6 d induction of labor vaginal delivery Procedure: vaginal delivery Op report anesthesia: Epidural Delivering Physician: Danny Fine MD Estimated blood loss (mL): 300 Findings: , vigorous nuchal cord x three, reduced shoulders delivered easily cord gases obtained normal placenta and cord no episiotomy / lacerations EBL: 300 cc no complications Pre-Delivery Course: normal labor course Delivery: vaginal Post-Delivery Status: good History History History 2 Term 1 0 Miscarriages/Ectopic 0 Living Children 1 Past Pregnancies Del. Date GA/Weeks Outcome Route Wt Inf Gender Labor Lgth Comp. Anesth esia Location Unknown 38 live - full term Vaginal 7 lb 6.521 oz Female A&P Assessment and plan (1) Vaginal delivery: PDMP PDMP Reviewed: Not Reviewed Coding Level of Care Code Acute Code for Chg Fwd Diagnoses Vaginal delivery O80
--- NOTE | 2025-03-07 16:38 | ANE.PACU2 ---
Inpatient post-anesthesia follow up: Airway intact: Yes Vital signs: Temperature Pulse Rate 98 Respiratory Rate Blood Pressure 145/93 Pulse Oximetry 90 Oxygen Delivery Me thod Room Air Oxygen Flow Rate Fraction of Inspir ed Oxygen Hydration adequate: Yes Nausea and vomiting: No Pain level: 1 Mental status: Baseline Epidural Start/End: Epidural Start Date: 03/07/25 Epidural Start Time: 08:08 Epidural End Date: 03/07/25 Epidural End Time: 11:03
[2025-03-07] MEDS: docusate sodium 100 mg Capsule PO (21:32)
[2025-03-07] MEDS: ibuprofen 800 mg tablet PO (21:32)
[2025-03-07 22:56] LABS: Hematocrit 32.8 % (36-47); Mean Corpuscular HGB Conc 32.3 g/dL (30-55); Mean Corpuscular Hemoglobin 28.8 pg (27-33); Mean Corpuscular Volume 89.1 fl (85-98); Mean Platelet Volume 9.9 fL (7.4-10.4); Platelet Count 195 10^3/cmm (157-399); Red Blood Count 3.68 10^6/uL (3.85-5.65); Red Cell Distribution Width 13.9 % (12.1-15.1)
[2025-03-08] MEDS: PRENATAL VIT NO.130/IRON/FOLIC 1 EACH TABLET PO (09:15)
[2025-03-08] MEDS: ibuprofen 800 mg tablet PO (09:15)
[2025-03-08] MEDS: docusate sodium 100 mg Capsule PO (09:15)
[2025-03-08 10:00] VITALS: BP 139/72; PULSE 74; RESP 16; TEMP 36.8
--- NOTE | 2025-03-08 11:56 | PM.OBGYDC ---
Discharge Providers STAVE SAW OPERATOR Date of Admission: 03/07/25 00:13 Date of Discharge: 03/08/25 Attending Provider at Admission: Danny Fine MD Attending Provider at Discharge: Danny Fine MD Primary STAVE SAW OPERATOR: Dr. Danny Fine Diagnoses at Discharge Discharge Diagnosis (1) Vaginal delivery: Details from hospital stay: 29-year-old female G2, P2 delivered on 03/07/2025 via without complications. Patient seen this a.m., denies headaches, blurred vision, shortness of breath or chest pain. Patient states her bleeding is light with no passage of clots or excessive bleeding. Patient is tolerating a regular diet, voiding and ambulating in hallway without problems. Patient is breast-feeding without nursing assistance. Discharge and expectations reviewed with patient in great detail, patient verbalizes understanding. I reviewed reasons to return to the ER to include severe headache, shortness of breath or chest pain or excessive vaginal bleeding. Status: Acute Reason for Visit Reason for Visit: IOL Hospital Course Hospital Course 29-year-old G2, P2 admitted to hospital for elective induction of labor at 40.6 weeks gestation with an TADEO of 03/01/2025. Patient progressed after cervical ripening to complete dilatation and delivered a viable baby via . Information Peripartum Data: Infant Delivery Method: Vaginal complications: none Physical Exam Back/Pelvis: OTHER: Abdomen?soft, fundus firm below umbilicus. Lochia?rubra, light Extremity: COMMON NORMALS: normal to inspection, no clubbing, cyanosis or edema and no calf tenderness History History History 2 Term 1 0 Miscarriages/Ectopic 0 Living Children 1 Past Pregnancies Del. Date GA/Weeks Outcome Route Wt Inf Gender Labor Lgth Comp. Anesthesia Location Unknown 38 live - full term Vaginal 3.36 kg Female Discharge Data Studies Completed and Pending Pending at discharge Category Date Time Status High Risk PP Hemorrhage Stat Lab 03/07/25 11:24 Received Laboratory Results WBC 15.30 10^3/uL (3.29-11.43) H 03/07/25 22:31 RBC 3.68 10^6/uL (3.85-5.65) L 03/07/25 22:31 Hgb 10.60 g/dL (11.27-16.99) L 03/07/25 22:31 Hct 32.8 % (36-47) L 03/07/25 22:31 MCV 89.1 fl (85-98) 03/07/25 22:31 MCH 28.8 pg (27-33) 03/07/25 22:31 MCHC 32.3 g/dL (30-55) 03/07/25 22:31 RDW 13.9 % (12.1-15.1) 03/07/25 22:31 Plt Count 195 10^3/cmm (157-399) 03/07/25 22:31 MPV 9.9 fL (7.4-10.4) 03/07/25 22:31 Neut % (Auto) 62.2 % 03/07/25 01:17 Lymph % (Auto) 28.3 % 03/07/25 01:17 Meagher % (Auto) 7.2 % 03/07/25 01:17 Eos % (Auto) 1.3 % 03/07/25 01:17 Baso % (Auto) 0.4 % 03/07/25 01:17 Neut # (Auto) 6.38 10^3/uL (1.8-7.7) 03/07/25 01:17 Lymph # (Auto) 2.9 10^3/uL (0.8-4.8) 03/07/25 01:17 Meagher # (Auto) 0.7 10^3/uL (0.2-0.9) 03/07/25 01:17 Eos # (Auto) 0.1 10^3/uL (0.0-0.8) 03/07/25 01:17 Baso # (Auto) 0.0 10^3/uL (0.0-0.1) 03/07/25 01:17 Nucleated RBC % (auto) 0 % 03/07/25 01:17 Nucleated RBCs # 0.0 /100WBC 03/07/25 01:17 Blood Type B Positive 03/07/25 01:17 Rho(D) Type Rh positive 03/07/25 01:17 Antibody Screen Negative 03/07/25 01:17 Vitals Last Vital Signs Temp 98.2 F 03/08/25 10:00 Pulse 74 03/08/25 10:00 Resp 16 03/08/25 10:00 BP 139/72 03/08/25 10:00 Pulse Ox 98 03/07/25 18:38 O2 Del Method Room Air 03/08/25 10:00 Results Labs OB ([facility]): Obstetrics US 03/04/25 Blood Type B Positive 03/07/25 Antibody Screen Negative 03/07/25 Hct, (36-47) 32.8 % L 03/07/25 Hgb, (11.27-16.99) 10.60 g/dL L 03/07/25 Rho(D) Type Rh positive 03/07/25 Plt Count, (157-399) 195 10^3/cmm 03/07/25 Hep Bs Antigen, (Nonreactive) Non-reactive 08/09/24 Hepatitis C Antibody, (Nonreactive) Non-reactive 08/09/24 Rubella IgG Antibody, (0.0-10.0) > 500.0 IU/mL H 08/09/24 RPR, (Nonreactive) Nonreactive 08/09/24 HIV 1&2 Ab & HIV 1 Ag, (Non-Reactiv) Non-reactive 08/09/24 TSH, (0.27-4.20) 1.54 uIU/mL 08/09/24 Glucose 1 Hr 50 gm, (85-140) 100 mg/dL 11/15/24 VZV IgG Antibody 40.60 S/CO 08/09/24 HCG, Qual, (Negative) Positive H 07/12/24 Urine Opiates Screen, (Negative) Negative ng/mL 08/09/24 Ur Barbiturates Screen, (Negative) Negative ng/mL 08/09/24 Ur Phencyclidine Scrn, (Negative) Negative ng/mL 08/09/24 Ur Amphetamines Screen, (Negative) Negative ng/mL 08/09/24 U Benzodiazepines Scrn, (Negative) Negative ng/mL 08/09/24 Urine Cocaine Screen, (Negative) Negative ng/mL 08/09/24 U Marijuana (THC) Screen, (Negative) Negative ng/mL 08/09/24 Micro Urine Specimen 08/09/24 Discharge Plan Discharge Patient Disposition: Home Condition: Stable Prescriptions: Continued DHA 200 mg capsule 200 mg PO DAILY aspirin 81 mg tablet,delayed release (DR/EC) 81 mg PO DAILY Allergy Relief (loratadine) 10 mg capsule 10 mg PO DAILY famotidine 40 mg tablet 40 mg PO DAILY Qty: 30 4RF Discharge Orders: Discharge Order (Routine); Ordered 03/08/25 Ordered By: Jelly Moreland Referrals: Maggie Sharma NP [Nurse Practitioner, STAVE SAW OPERATOR] - 04/18/26 8:45 am Discharge Diet: Regular Discharge Activity: Increase activity as tolerated Patient Instructions: Depression (DC), Opioid Safety (DC), Preeclampsia and Eclampsia After Delivery (GEN), Hemorrhage (DC), OB Discharge Report, OB Food/Drug Interaction Guide, Opioid Safety, OB Home Care, OB Vaginal Deliveries - [facility], Abnormal Bleeding Activity Restrictions/Additional Instructions: No strenuous activity to include heavy lifting pushing or pulling. No sexual intercourse x 6 weeks. Patient to continue vitamins and iron daily through breast-feeding. Patient's Health Concerns: S/p Assessment: 1. S/p 2. History of gestational hypertension not affecting this . Plan of Treatment: 1. DC patient to home 2. Follow-up at clinic in 4 to 6 weeks for evaluation. 3. Patient to continue vitamins and iron Discharge Attestations STAVE SAW OPERATOR Time Spent in Discharge Care*: less than 30 min Coding Level of Care Code Acute Code for Chg Fwd Diagnoses Vaginal delivery O80
[2025-03-08 12:30] VITALS: BP 129/90; PULSE 89; RESP 18; TEMP 36.6; TEMP 36.7; O2SAT 100
[2025-03-10 11:24] LABS: High Risk PP Hemorrhage BBK Notified
== END 2025-03-08 12:45 | disposition home or self-care (01) | DRG 807 ==
LOC: OPOB 00:13 → OBGYN 00:39
PROVIDERS: Admitting Provider Obstetrics & Gynecology; Visit Provider Obstetrics & Gynecology
DX: O48.0 Post-term pregnancy (principal); Z37.0 Single live birth; Z3A.40 40 weeks gestation of pregnancy; O69.81X0 Labor and delivery complicated by cord around neck, without compression, not applicable or unspecified
CPT/HCPCS: 36415; 59025; 59409; 85025; 85027; 86850; 86900; 99211; J2590; J2795; J3490; J7120; J9999

== ENCOUNTER → 2025-04-18 09:43 | Outpatient (BNVA) | payer BC, SELFPAY | PROVIDERS: Visit Provider Nurse Practitioner Women's Health | DX: Z39.2 Encounter for routine postpartum follow-up (principal) | CPT/HCPCS: 87624 ==